=== PATIENT | male | born 1945 | race Two or more races ===

== ENCOUNTER 2024-12-11 11:30 | Emergency (ER) | payer BC ==
[~2024-12-11] VITALS: Ht 182.9 cm; Wt 81.6 kg
[2024-12-11 14:08] LABS: ALBUMIN 3.9 gm/dL (3.4-5.0); BILIRUBIN TOTAL 2.62 mg/dL (0.3-1.2); CALCIUM 9.5 mg/dL (8.5-10.1); CREATININE SERUM 0.92 mg/dL (0.70-1.30); GFR 79.36; GLOBULINA 3.1 G/DL (2.4-3.5); POTASSIUM 3.24 mEq/L (3.5-5.1)
[2024-12-11 14:31] LABS: HEMATOCRIT 40.6 % (39.0-48.0); HEMOGLOBIN 13.7 g/dL (13-16.00); MEAN CELL VOLUME 84.6 fL (80.0-100.00); MEAN CORPUSCULAR HEMOGLOBIN 28.6 pg (27.00-32.0); MEAN CORPUSCULAR HGB CONC 33.9 g/dl (32.0-36.0); PLATELET COUNT 243 K/uL (150-450); RED CELL DISTRIBUTION WIDTH 16.2 % (11.5-14.5)
[2024-12-11] MEDS ORDERED: POTASSIUM BICARBONATE/CIT AC 25 MEQ TABLET.EFF PO ONE (15:00)
== END 2024-12-11 15:57 | disposition home or self-care (01) ==
LOC: ER 11:32
PROVIDERS: Preventive Medicine Public Health & General Preventive Medicine
DX: R53.81 Other malaise (principal); R53.83 Other fatigue